=== PATIENT | male | born 1995 | race Two or more races ===

== ENCOUNTER 2022-04-09 18:34 | Emergency (ER) | payer MEDICAID ==
[~2022-04-09] VITALS: Ht 167.6 cm; Wt 81.6 kg
[2022-04-09 18:46] VITALS: BP 122/92
--- NOTE | 2022-04-10 05:59 | NUR ---
Patient discharged to home in stable condition. Written and verbal after care instructions given. Patient verbalizes understanding of instruction.
== END 2022-04-10 06:00 | disposition home or self-care (01) ==
LOC: ER 18:36
DX: F19.90 Other psychoactive substance use, unspecified, uncomplicated (principal)
CPT/HCPCS: 82962-TC

== ENCOUNTER 2022-04-26 13:02 | Emergency (ER) | payer MEDICAID ==
[~2022-04-26] VITALS: Ht 188 cm; Wt 108.9 kg
--- NOTE | 2022-04-26 13:48 | NUR ---
SECURITY WITH PT FOR WANDING.
--- NOTE | 2022-04-26 13:53 | NUR ---
COVID SWAB COLLECTED AND SENT TO LAB.
--- NOTE | 2022-04-26 13:54 | NUR ---
UNABLE TO PROVIDE URINE AT THIS TIME
[2022-04-26 14:27] LABS: BASOPHILS % (AUTO) 0.5 % (0.0-2.0); EOSINOPHILS % (AUTO) 9.5 % (0.0-6.0); HEMATOCRIT 41 % (39-51); HEMOGLOBIN 13.6 g/dL (13.5-17.5); LYMPHOCYTES # (AUTO) 2.2 K/uL (0.8-4.8); MEAN CORPUSCULAR HGB CONC 34 g/dl (31.0-36.0); MEAN CORPUSCULAR VOLUME 84 fL (80-96); MONOCYTES # (AUTO) 0.8 K/uL (0.1-1.30); NEUTROPHILS # (AUTO) 3.8 K/uL (1.8-8.9); PLATELET COUNT (AUTO) 191 K/uL (150-450); RED BLOOD CELL COUNT(AUTO) 4.81 MIL/uL (4.5-6.0); WHITE BLOOD COUNT (AUTO) 7.6 K/uL (4.3-11.0)
[2022-04-26 15:01] LABS: ALANINE AMINOTRANSFERASE 199 U/L (12-78); ALBUMIN 3.8 g/dL (3.4-5.0); ALCOHOL, BLOOD < 3 mg/dL (0-0); ALKALINE PHOSPHATASE 103 U/L (46-116); ASPARTATE AMINOTRANSFERASE 79 U/L (15-37); BILIRUBIN,DIRECT 0.1 mg/dL (0.0-0.2); BILIRUBIN,TOTAL 0.4 mg/dL (0.2-1.0); CALCIUM, SERUM 8.5 mg/dL (8.5-10.1); CARBON DIOXIDE 29 mmol/L (21-32); CHLORIDE 104 mmol/L (98-107); CREATININE 0.9 mg/dL (0.6-1.3); GLUCOSE 123 mg/dL (74-106); POTASSIUM 3.7 mmol/L (3.5-5.1); SODIUM SERUM 140 mmol/L (136-145); TOTAL PROTEIN, SERUM 7.4 g/dL (6.4-8.2); UREA NITROGEN, BLOOD 14 mg/dL (7-18)
[2022-04-26 15:06] LABS: ACETAMINOPHEN 0 ug/ml (10-30)
--- NOTE | 2022-04-26 17:15 | NUR ---
FAXED CLINICALS TO [facility]TAKE.
--- NOTE | 2022-04-26 18:47 | NUR ---
RE-FAXED CLINICALS TO [facility] INTAKE.
--- NOTE | 2022-04-26 21:41 | NUR ---
URINE COLLECTED AND SENT TO LAB
[2022-04-26 22:13] LABS: BILIRUBIN,URINE NEGATIVE (NEGATIVE); COLOR,URINE YELLOW (YELLOW); LEUKOCYTE ESTERASE ,URINE NEGATIVE (NEGATIVE); NITRITE, URINE NEGATIVE (NEGATIVE); PROTEIN,URINE NEGATIVE (NEGATIVE); UGLUCOSE NEGATIVE (NEGATIVE); UROBILINOGEN,URINE 0.2 EU/dL (0.2)
--- NOTE | 2022-04-26 23:22 | NUR ---
FAXED COMPLEE CLINICALS INCLUDING U/A AND COVID RESULTS TO [facility]TAKE
--- NOTE | 2022-04-27 02:45 | NUR ---
PATIENT IS ACCEPTED AT [facility] UNDER CARE OF DR JOYCE. # FOR REPORT: [phone]
--- NOTE | 2022-04-27 02:51 | NUR ---
[facility] CALLED FOR BLS GOING TO [facility] PER [facility] ETA- 15 MIN
--- NOTE | 2022-04-27 03:19 | NUR ---
REPORT GIVEN TO PRISCILA FOR HECTOR AT [facility]
--- NOTE | 2022-04-27 03:25 | NUR ---
[facility] AT BEDSIDE FOR TRANSPORTATION
[2022-04-27 03:35] VITALS: BP 120/79
== END 2022-04-27 03:37 ==
LOC: ER 13:11
DX: F23 Brief psychotic disorder (principal); F19.10 Other psychoactive substance abuse, uncomplicated; R74.01 Elevation of levels of liver transaminase levels; Z20.822 Contact with and (suspected) exposure to COVID-19; Z59.00 Homelessness unspecified
CPT/HCPCS: 99285; 85025; 80048; 80076; 81003; 36415; 87426; 80143; 80320; 80307; C9803; G0480

== ENCOUNTER 2022-05-04 15:37 | Emergency (ER) | payer MEDICAID ==
[~2022-05-04] VITALS: Ht 182.9 cm; Wt 106.6 kg
[2022-05-04 16:06] VITALS: BP 158/89
[2022-05-04] MEDS ORDERED: BUPRENORPHINE HCL 8 MG TAB.SUBL SL ONE ×2 (16:28→16:30)
[2022-05-04] MEDS ORDERED: DICYCLOMINE HCL 10 MG CAPSULE PO ONE ×2 (16:29→16:30)
[2022-05-04] MEDS ORDERED: DICY10CA37 PO (16:33)
--- NOTE | 2022-05-04 18:00 | NUR ---
Patient discharged to home in stable condition. Written and verbal after care instructions given. Patient verbalizes understanding of instruction.
--- NOTE | 2022-05-05 08:45 | NUR ---
SS consult requested yesterday evening, however, pt. has been discharged.
== END 2022-05-04 18:00 | disposition home or self-care (01) ==
LOC: ER 15:42
DX: F19.11 Other psychoactive substance abuse, in remission (principal); Z76.0 Encounter for issue of repeat prescription; K21.9 Gastro-esophageal reflux disease without esophagitis; F32.A Depression, unspecified; G89.29 Other chronic pain; F41.9 Anxiety disorder, unspecified